=== PATIENT | female | born 1985 | race Caucasian/White ===

== ENCOUNTER 2016-04-20 13:31 | Emergency (ER) | payer OTHER ==
[~2016-04-20] VITALS: Ht 170.2 cm; Wt 95.5 kg
[2016-04-20 13:52] VITALS: BP 136/86; PULSE 74; RESP 16; O2SAT 100
[2016-04-20] MEDS ORDERED: PREN-100 PO (13:55)
[2016-04-20 14:29] LABS: Mean Corpuscular Hemoglobin 31.9 pg (27.0-35.0); Mean Corpuscular Volume 95.4 fL (81-100)
[2016-04-20 14:39] LABS: APPEARANCE,URINE HAZY (CLEAR,HAZY); COLOR,URINE STRAW (YELLOW); OCCULT BLOOD,URINE NEGATIVE (NEGATIVE); UROBILINOGEN,URINE NORMAL (NORMAL)
[2016-04-20 17:13] VITALS: BP 124/85; PULSE 73; RESP 16; O2SAT 100
--- NOTE | 2016-04-20 17:19 | ED.REPORT ---
HPI-Abd Pain F Under 40 Date of Service Apr 20, 2016 ED Provider: Shahbaz Amato DO Pt is a 31 y.o. female who presents to the ED c/o abnormal vaginal bleeding onset 5 days ago. Pt states that she had a positive test last week. She reports associated left lower pelvic pain. She denies fever, chills, nausea , vomiting, diarrhea, and abdominal pain. Nursing Notes Stated Complaint: POSS MISCARRIAGE Chief Complaint: & Delivery Nursing Notes Reviewed: Yes Allergies: Coded Allergies: No Known Drug Allergies (Verified Allergy, Unknown, 04/20/16) Scheduled Vits #90/Iron Fum/FA ( Formula Tablet) 1 Each Tablet 1 EACH PO DAILYWD General Time Seen by MD: 17:15 Chief Complaint Vaginal bleeding Hx Obtained From: Patient Arrived By: Walk-in Onset Occurred: 5 days ago Symptom Duration: Since onset Location: : Pelvis Quality: Painful Severity: Current: Mild Past Medical History Past Medical History Notes: Rh+ Past Medical History None reported Past Surgical History None reported Ambulatory Status Independent Review of Systems Constitutional: Denies: Chills, Fever GI: Denies: Abdominal pain, Diarrhea, Nausea, Vomiting Female: Reports: Pelvic pain, , Vaginal bleeding - abnl Complete sys rev & neg: except as marked. Physical Exam Initial Vital Signs Vital Signs (First) Date Time Temp Pulse Resp B/P Pulse Ox O2 Delivery O2 Flow Rate FiO2 04/20/16 13:52 36.1 74 16 136/86 100 Room Air Initial VS: Reviewed Head / Eyes: Atraumatic, Normocephalic Extremities: Vascular intact, Neuro intact, No swelling, No tenderness Skin: Warm, Dry, No cyanosis Neurologic: Alert, Oriented, Nonfocal Psychiatric: Mood/affect normal, Behavior normal, Normal thought content General/Constitutional: Awake, Alert, No acute distress, Well appearing, Well developed, Well hydrated, Well nourished, Not toxic appearing Respiratory / Chest: Atraumatic, Breath sounds NL, Breath sounds = bilat, No respiratory distress, No rales, No rhonchi, No wheezing, No retractions, No stridor Cardiovascular: Heart rate NL, Regular rhythm, Heart sounds NL, No gallop, No murmurs, No rubs, Peripheral circulation NL Abdomen: Atraumatic, Soft, Non-tender, No guarding, No rebound, No distention Back: Atraumatic Female Genitourinary: Exam deferred Interpretation & Diagnostics Lab Results Interpretation Result Diagram: 04/20/16 1420 04/20/16 1420 Test 04/20/16 14:20 04/20/16 14:30 White Blood Count 5.9th/mm3 (3.8-10.1) Red Blood Count 4.74mil/mm3 (3.90-5.20) Hemoglobin 15.1g/dL (12.0-15.6) Hematocrit 45.2% (35.0-46.0) Mean Corpuscular Volume 95.4fL (81-100) Mean Corpuscular Hemoglobin 31.9pg (27.0-35.0) Mean Corpuscular Hemoglobin Concent 33.4% (32.0-37.0) Red Cell Distribution Width 12.4% (12.3-15.4) Platelet Count 247bil/L (150-400) Sodium Level 139mEq/L (134-144) Potassium Level 4.5mEq/L (3.5-5.2) Chloride Level 104mEq/L (97-108) Carbon Dioxide Level 21mmol/L (18-29) Blood Urea Nitrogen 16mg/dL (6-20) Creatinine 0.63mg/dL (0.57-1.00) Estimat Glomerular Filtration Rate 156mL/min (>59) Glucose Level 103mg/dL (60-99) Calcium Level 9.2mg/dL (8.5-10.1) Total Bilirubin 0.3mg/dL (0.0-1.2) Aspartate Amino Transf (AST/SGOT) 27U/L (0-50) Alanine Aminotransferase (ALT/SGPT) 32U/L (0-32) Alkaline Phosphatase 77U/L (25-150) Total Protein 6.9g/dL (6.4-8.4) Albumin 4.5g/dL (3.4-5.0) HCG Beta Subunit 0.755mIU/mL Urine Color Straw (YELLOW) Urine Appearance Hazy (CLEAR,HAZY) Urine pH 6.0 (5.0-8.0) Urine Specific Dell 1.025 (1.003-1.035) Urine Protein Negativemg/dL (NEG,TRACE) Urine Glucose (UA) Negativemg/dL (NEGATIVE) Urine Ketones Lmg/dL (NEGATIVE) Urine Occult Blood Negative (NEGATIVE) Urine Nitrite Negative (NEGATIVE) Urine Bilirubin Negative (NEGATIVE) Urine Urobilinogen Normalmg/dL (NORMAL) Urine Leukocyte Esterase Negative (NEGATIVE) Urine RBC 0-2/hpf (0-2) Urine WBC 0-5/hpf (0-5) Urine Epithelial Cells Occasional/hpf (NONE-MOD) Urine Crystals None seen (NONE SEEN) Urine Bacteria Few/hpf (NONE-FEW) Urine Hyaline Casts None/lpf (NONE) Urine Granular Casts None seen (NONE SEEN) Urine Waxy Casts None seen (NONE SEEN) Urine Red Blood Cell Casts None seen (NONE SEEN) Urine White Blood Cell Casts None seen (NONE SEEN) Urine Mucus None seen (None Seen) Urine Trichomonas None seen (NONE SEEN) Urine Yeast None (NONE SEEN) Urinalysis Comment None Urine Culture Reflexed Not indicated US Focused OB IMPRESSION: No evidence for intrauterine gestation are extrauterine gestation is seen. The cause of left lower quadrant pain is not identified. Ectopic is not excluded. Dictated by: Peewee Castillo M.D. on 04/20/2016 at 19:05 Approved by: Peewee Castillo M.D. on 04/20/2016 at 19:08 Re-Eval/Medical Decision Med Decision/Clinical Course It would appear that Angela is nearly completed the miscarriage. Ectopic is ruled out. No signs of internal hemorrhage. She is Rh+. Short course of Percocet prescribed for pain. Routine opiate warnings given. Re-Evaluation/Progress : Time of Eval: 18:46 Re-Evaluation/Progress Note: Pt rechecked. Discussed US and plan for discharge, pt understands and agrees with plan. Counseled Regarding: Diagnosis Discharge & Departure Primary Impression: Miscarriage Disposition: Home Discharge Condition All VS Reviewed: Yes Condition: Improved Patient Instructions: Spontaneous Miscarriage (ED) Additional Instructions: Your ultrasound showed a nearly completed miscarriage. Take 1-2 Percocet every 6 hours as needed for pain. Do not drink, drive, or consume acetominophen while taking Percocet. You are Rh positive and not anemic. Contact your [employer] for a follow-up appointment next week. Return if you begin to experience excessive bleeding, increased pain, or any new or worsening symptoms. Referrals: Angela Martin MD (PCP) Scribe Attestation Portions of this note were transcribed by Heavenly Chowdhury. I, Dr. Amato personally performed the history, physical exam and medical decision-making; I reviewed and confirmed the accuracy of the information in the transcribed note. Signed by : Eric Bishop, 04/20/16 and 194. copies to: Angela Martin MD, Todd P DO Apr 20, 2016 17:19 HEAVENLY CHOWDHURY Apr 20, 2016 17:21
--- NOTE | 2016-04-20 19:09 | DRSVH ---
PROCEDURE: US PELVIC SONOGRAM + TRANSVAGINAL SONOGRAM INDICATIONS: , bleeding, pain left lower pelvis TECHNIQUE: Real-time scanning was performed of the pelvic organs, with image documentation. Additional endovagi nal scanning was necessary due to incomplete visualization of the adnexal and endometrial structures by transabdominal scanning. COMPARISON: None. FINDINGS: Transabdominal scanning: Limited scanning through the kidneys shows no hydronephrosis. No pathologi c free abdominal or pelvic fluid. Endovaginal scanning: Uterus: Uterus is normal in size at 7.6 x 3.2 x 4.6 cm. The endometrium measures 6.8 mm in combined thickness. No gestational sac is seen. Ovaries: The right ovary measuring 4.7 x 1.9 x 1.9 cm and the left ovary measuring 3.6 x 2.2 x 2.3 cm both show normal appearance and blood flow. Normal follicular type cysts are present. Miscellaneous: No free fluid is seen. IMPRESSION: No evidence for intrauterine gestation are extrauterine gestation is seen. The cause of left lower qu adrant pain is not identified. Ectopic is not excluded. Dictated by: Peewee Castillo M.D. on 04/20/2016 at 19:05 Approved by: Peewee Castillo M.D. on 04/20/2016 at 19:08
== END 2016-04-20 18:50 | disposition home or self-care (01) ==
LOC: SED 13:31
DX: O03.9 Complete or unspecified spontaneous abortion without complication (principal); Z3A.00 Weeks of gestation of pregnancy not specified